=== PATIENT | female | born 1985 | race African-American/Black ===

== ENCOUNTER 2019-08-31 16:30 | Emergency (ER) | payer SELFPAY ==
[~2019-08-31] VITALS: Ht 167.6 cm; Wt 114.0 kg
[~2019-08-31 16:30] MED LIST: ALBU17AE26
[2019-08-31] MEDS ORDERED: LISI10TA5 PO (17:17)
[2019-08-31] MEDS ORDERED: HYDR25TA PO (17:17)
[2019-08-31 21:00] VITALS: BP 170/105
== END 2019-08-31 21:04 | disposition home or self-care (01) ==
LOC: ER 16:30
DX: R60.0 Localized edema (principal); I87.8 Other specified disorders of veins; J45.909 Unspecified asthma, uncomplicated; I10 Essential (primary) hypertension
CPT/HCPCS: 73590; 99283

== ENCOUNTER 2020-11-04 10:06 | Emergency (ER) | payer SELFPAY ==
[~2020-11-04] VITALS: Ht 167.6 cm; Wt 100.0 kg
[~2020-11-04 10:06] MED LIST changes: +HYDR25TA PO; +LISI10TA5 PO
[2020-11-04 12:12] LABS: BASOPHILS % 1.1 % (0.0-2.0); CHLORIDE 101 mEq/L (98-107); EOSINOPHILS % 0.1 % (0.0-5.0); HEMATOCRIT. 39.9 % (36.0-48.0); LYMPHOCYTES % 18.7 % (20.0-50.0); MEAN CORPUSCULAR HEMOGLOBIN 27.1 pg (28.0-32.0); MEAN CORPUSCULAR VOLUME 83.2 fL (81.0-99.0); MEAN PLATELET VOLUME 10.1 fl (7.4-10.4); MONOCYTES % 10.4 % (2.0-8.0); NEUTROPHILS % 69.7 % (40.0-76.0); PLATELET 222 x1000/uL (130-400); RED CELL DISTRIBUTION WIDTH 15.8 % (11.6-14.6)
[2020-11-04] MEDS ORDERED: SODIUM CHLORIDE 0.9% 1,000 ML IV ONE (18:30)
[2020-11-04] MEDS ORDERED: MECLIZINE 25MG TABLET PO ONE (18:45)
[2020-11-04 19:43] LABS: CLARITY URINE TURBID (CLEAR); COLOR URINE DARK YELLOW (YELLOW); KETONES URINE TRACE (NEGATIVE); LEUKOCYTE ESTERASE URINE 2+ (NEGATIVE); NITRITE URINE POSITIVE (NEGATIVE); OCCULT BLOOD URINE 2+ (NEGATIVE); PROTEIN URINE 1+ (NEGATIVE); SPECIFIC GRAVITY URINE 1.025 (1.005-1.030)
[2020-11-04 20:36] LABS: *AMPHETAMINES SCREEN URINE NEGATIVE (NEGATIVE); *BARBITURATES SCREEN URINE NEGATIVE (NEGATIVE); CANNABINOID URINE SCREEN NEGATIVE (NEGATIVE); OPIATES URINE SCREEN NEGATIVE (NEGATIVE); PHENCYCLIDINE URINE SCREEN NEGATIVE (NEGATIVE)
[2020-11-04 20:37] LABS: *BENZODIAZEPINES SCREEN URINE NEGATIVE (NEGATIVE); *COCAINE SCREEN URINE NEGATIVE (NEGATIVE); METHADONE URINE SCREEN NEGATIVE (NEGATIVE)
[2020-11-04 21:00] VITALS: BP 137/74
== END 2020-11-04 21:14 | disposition home or self-care (01) ==
LOC: ER 10:06
DX: R55 Syncope and collapse (principal); R42 Dizziness and giddiness; R07.89 Other chest pain; I10 Essential (primary) hypertension; N39.0 Urinary tract infection, site not specified; J45.909 Unspecified asthma, uncomplicated
CPT/HCPCS: 36415; 70450; 71045; 80053; 80305; 81003; 85025; 93005; 96360; 99285; J7030; J8597